=== PATIENT | male | born 1985 | race Caucasian/White ===

== ENCOUNTER 2020-03-07 13:44 | Emergency (ER) | payer OTHER, SELFPAY ==
--- NOTE | ~2020-03-07 | XR_ITS ---
XR foot LT min 3V DATE: 03/07/2020 15:13 INDICATION: Stepped on foreign body/glass. Abrasion at fourth digit TECHNIQUE: 4 views COMPARISON: None FINDINGS: There is moderate plantar and mild posterior calcaneal enthesopathy. No radiopaque soft tissue foreign body or subcutaneous emphysema, fracture, dislocation, periosteal r eaction or bone destruction is detected. IMPRESSION: No radiopaque foreign body or fracture or dislocation Calcaneal enthesopathy Reviewed, dictated and finalized at location [facility]
[2020-03-07 14:16] VITALS: BP 138/79; PULSE 97; RESP 20; TEMP 36.7; O2SAT 97
[2020-03-07] MEDS: TETANUS,DIPHTHERIA,AC PERTUSSIS ADULT (0.5 ML) BOOSTRIX IM (15:46)
--- NOTE | 2020-03-07 16:02 | ED.GENADULT ---
HPI - General Adult General Chief complaint: Wound/Laceration Stated complaint: toe laceration Time Seen by Provider: 03/07/20 14:11 Source: patient Mode of arrival: ambulatory Limitations: no limitations History of Present Illness HPI narrative: Patient presents with chief complaint of laceration to the volar aspect of his reports right total that he sustained after stepping on glass this morning. Patient states that the area is painful and tender to touch. He reports pain with weightbearing. Patient denies any loss of range of motion or sensation to the toe. Patient denies any other injuries or concerns. He states he is not up-to-date on tetanus. Related Data Allergies Allergy/AdvReac Type Severity Reaction Status Date / Time No Known Allergies Allergy Verified 03/07/20 14:54 Review of Systems Review of Systems: Narrative: CONSTITUTIONAL: Denies fever, chills, or sweats. EYES: Denies visual changes, redness, or discharge. ENT: Denies rhinorrhea, congestion, sore throat, or otalgia. CARDIOVASCULAR: Denies chest pain, palpitations, or edema. RESPIRATORY: Denies cough or dyspnea. GASTROINTESTINAL: Denies abdominal pain, nausea, vomiting, or diarrhea. GENITOURINARY: Denies dysuria or hematuria. SKIN: Denies rash or itching. MUSCULOSKELETAL: Denies back pain, joint pain, or myalgia. NEUROLOGIC: Denies headache, numbness, dizziness, or weakness. PSYCHIATRIC: Denies anxiety or depression. Exam Narrative: Exam Narrative: GENERAL: Well-appearing, well-nourished, and in no acute distress. HEAD: Normocephalic, atraumatic. EYES: PERRLA and EOMI. CHEST: Clear to auscultation. No respiratory distress. No wheezes rales or rhonchi HEART: Regular rate and rhythm. EXTREMITIES: 1cm laceration to the volar aspect of the right 4th digit. Patients feet are dirty. no seen foreign bodies SKIN:laceration, see extremities. Warm, dry, no rash. NEURO: No focal deficits. Alert and oriented x3. PSYCH: Normal mood and affect. Course Vital Signs Vital signs: Vital Signs Temperature 98.1 F 03/07/20 14:16 Pulse Rate 97 03/07/20 14:16 Respiratory Rate 20 03/07/20 14:16 Blood Pressure 138/79 03/07/20 14:16 Pulse Oximetry 97 03/07/20 14:16 Temperature 98.1 F 03/07/20 14:16 Pulse Rate 78 03/07/20 16:17 Respiratory Rate 22 H 03/07/20 16:17 Blood Pressure 140/70 03/07/20 16:17 Pulse Oximetry 99 03/07/20 16:17 Medical Decision Making MDM Narrative Medical decision making narrative: Patient's feet are very dirty and I am concerned that if we are to close the wound along with the possibility of retained foreign bodies think he will result in an abscess. The area is smiling patient will be put on Keflex and you will need to heal from the inside out. I have told the patient the importance of keeping his feet clean, washing with antibacterial soap and apply antibacterial ointment. I also told him it is important to follow-up with primary care in 5 to 7 days for reevaluation of wound. I have instructed him that if there are any concerning signs of infection present sooner he needs to follow-up sooner. I have instructed him to return to emergency department if he has any worsening or emergent symptoms. Vital Signs Vital Signs: Vital Signs Temperature 98.1 F 03/07/20 14:16 Pulse Rate 97 03/07/20 14:16 Respiratory Rate 20 03/07/20 14:16 Blood Pressure 138/79 03/07/20 14:16 Pulse Oximetry 97 03/07/20 14:16 Temperature 98.1 F 03/07/20 14:16 Pulse Rate 78 03/07/20 16:17 Respiratory Rate 22 H 03/07/20 16:17 Blood Pressure 140/70 03/07/20 16:17 Pulse Oximetry 99 03/07/20 16:17 Discharge Plan Discharge Clinical Impression: Laceration Patient Disposition: Home, Self-Care Condition: Stable Instructions: Antibiotic Form, Laceration (ED) Additional Instructions: Due to the small laceration and possibility of retained small glass wound needs to heal naturally from the inside
[2020-03-07 16:17] VITALS: BP 140/70; PULSE 78; RESP 22; O2SAT 99
== END 2020-03-07 16:19 | disposition home or self-care (01) ==
PROVIDERS: Emergency Provider Emergency Medicine
DX: S91.114A Laceration without foreign body of right lesser toe(s) without damage to nail, initial encounter (principal); Z23 Encounter for immunization; W25.XXXA Contact with sharp glass, initial encounter
CPT/HCPCS: 73630; 90471; 90715; 99283

== ENCOUNTER 2020-08-30 13:51 | Emergency (ER) | payer OTHER, SELFPAY ==
[2020-08-30 13:57] VITALS: BP 122/89; PULSE 99; RESP 16; TEMP 36.1; O2SAT 98
--- NOTE | 2020-08-30 15:31 | ED.DENTAL ---
HPI - Dental/Oral General Chief complaint: Dental/Oral Stated complaint: think I have an infected tooth Time Seen by Provider: 08/30/20 13:55 Source: patient Mode of arrival: ambulatory Limitations: no limitations History of Present Illness HPI Narrative: Patient is a 34-year-old male who presents complaining of a right lower dental pain x2 to 3 days. He reports increasing pain starting this a.m. Patient reports he has an appointment with your dentist on Thursday. He denies other complaints at this time. He denies significant medical history. MD Complaint: tooth pain Related Data Allergies Allergy/AdvReac Type Severity Reaction Status Date / Time No Known Allergies Allergy Verified 03/07/20 14:54 Review of Systems Review of Systems: Narrative: CONSTITUTIONAL: Denies fever, chills, or sweats. EYES: Denies visual changes, redness, or discharge. ENT: Denies rhinorrhea, congestion, sore throat, or otalgia. Reports right lower dental pain CARDIOVASCULAR: Denies chest pain, palpitations, or edema. RESPIRATORY: Denies cough or dyspnea. GASTROINTESTINAL: Denies abdominal pain, nausea, vomiting, or diarrhea. GENITOURINARY: Denies dysuria or hematuria. SKIN: Denies rash or itching. MUSCULOSKELETAL: Denies back pain, joint pain, or myalgia. NEUROLOGIC: Denies headache, numbness, dizziness, or weakness. PSYCHIATRIC: Denies anxiety or depression. [facility] Social History Social History (Updated 08/30/20 @ 15:34 by JEREMIAH De Jesus) Smoking status: Never smoker Alcohol intake: current Alcohol use details: Occasional Substance use: current Substance use type: marijuana Last use: Occasional Living arrangements: with family Comments At the time of signature, I have reviewed and agree with nursing past medical, surgical, social, and family history unless otherwise noted. Please see nursing chart for further information. There is no relevant family history pertinent to the presenting complaint. Exam Narrative: Exam Narrative: GENERAL: Well-appearing, well-nourished, and in no acute distress. HEAD: Normocephalic, atraumatic. EYES: EOMI. No redness or drainage. Conjunctiva are normal. ENT: Mucous membranes pink and moist. Multiple dental caries and dental fractures noted. CHEST: No respiratory distress. Clear to auscultation. HEART: Regular rate and rhythm. EXTREMITIES: Normal range of motion. No edema. SKIN: Warm, dry, no rash. NEURO: No focal deficits. Alert and oriented x3. Gait steady. PSYCH: Normal affect. No signs of depression or anxiety. Course Vital Signs Vital signs: Vital Signs Temperature 36.1 C L 08/30/20 13:57 Pulse Rate 99 08/30/20 13:57 Respiratory Rate 16 08/30/20 13:57 Blood Pressure 122/89 08/30/20 13:57 Pulse Oximetry 98 08/30/20 13:57 Temperature 36.1 C L 08/30/20 13:57 Pulse Rate 99 08/30/20 13:57 Respiratory Rate 16 08/30/20 13:57 Blood Pressure 122/89 08/30/20 13:57 Pulse Oximetry 98 08/30/20 13:57 Reviewed MDM - Dental/Oral MDM Narrative Medical decision making narrative: Patient appears to have right lower dental infection. Patient be started on Augmentin and ibuprofen at this time. Encourage patient to attend upcoming dental appointment. Patient agrees with plan of care and is stable for discharge at this time. Differential Diagnosis Differential diagnosis: Likely gingival abscess, dental caries, toothache, dental abscess and fracture of tooth Critical Care Time Critical Care Time Critical Care Time: No Discharge Plan Discharge Clinical Impression: Toothache, Dental caries Patient Disposition: Home, Self-Care Condition: Stable Instructions: Antibiotic Form, Dental Abscess (ED), Toothache (ED) Additional Instructions: Take antibiotics as directed. You may take Tylenol or ibuprofen for pain. Warm salt water rinses for comfort. Follow-up with your dentist as scheduled. If you develop increased swelling in the jaw, fever
[2020-08-30] MEDS: KETOROLAC (*BKC) 60 MG/2 ML VIAL IM (15:49)
== END 2020-08-30 15:59 | disposition home or self-care (01) ==
PROVIDERS: Emergency Provider Nurse Practitioner
DX: K02.9 Dental caries, unspecified (principal)
CPT/HCPCS: 96372; 99283; J1885